=== PATIENT | female | born 1970 ===

== ENCOUNTER 2024-07-16 08:10 | Day surgery (SDC) | payer OTHER ==
[~2024-07-16] VITALS: Ht 162.6 cm; Wt 80.7 kg
[2024-07-16] MEDS ORDERED: MEPERIDINE 100 MG INJ. 100 MG/ML VIAL ONE (08:18)
[2024-07-16] MEDS ORDERED: MIDAZOLAM HCL 5 MG/5 ML VIAL ONE (08:18)
[2024-07-16] MEDS ORDERED: SIMETHICONE 40 MG/0.6 ML ML ONE (08:19)
[2024-07-16 08:56] LABS: HCG,QUAL RESULT NEGATIVE (NEGATIVE)
[2024-07-16 09:49] VITALS: O2SAT 99
[2024-07-16 13:21] VITALS: BP_SYST 96; PULSE 58; RESP 14
== END 2024-07-16 11:10 | disposition home or self-care (01) ==
LOC: SDS 08:10
PROVIDERS: ATTEND Student in an Organized Health Care Education/Training Program
DX: Z12.11 Encounter for screening for malignant neoplasm of colon (principal); K63.89 Other specified diseases of intestine; K64.4 Residual hemorrhoidal skin tags; K64.8 Other hemorrhoids; K21.9 Gastro-esophageal reflux disease without esophagitis; M19.90 Unspecified osteoarthritis, unspecified site; Z98.891 History of uterine scar from previous surgery; Z80.0 Family history of malignant neoplasm of digestive organs
CPT/HCPCS: 45380; 99152; 84703; 88305; 99153; G0378; J2250; J2175